=== PATIENT | female | born 1940 | race Two or more races ===

== ENCOUNTER 2021-03-12 08:00 | Outpatient (CLI) | payer OTHER | END 2021-03-12 08:30 | disposition home or self-care (01) | LOC: PPH VACUNA 08:00 | DX: Z23 Encounter for immunization (principal) ==

== ENCOUNTER → 2021-09-20 | Outpatient (CLI) | payer OTHER | END | disposition home or self-care (01) | LOC: PPH VACUNA 08:00 | PROVIDERS: ATTEND Emergency Medicine Pediatric Emergency Medicine | DX: Z23 Encounter for immunization (principal) ==

== ENCOUNTER 2023-02-22 10:34 | Emergency (ER) | payer OTHER ==
[~2023-02-22] VITALS: Ht 154.9 cm; Wt 61.2 kg
[2023-02-22] MEDS ORDERED: ATENOLOL25 MG PO (11:21)
[2023-02-22] MEDS ORDERED: LEVO-T50 MCG PO (11:22)
[2023-02-22] MEDS ORDERED: CRESTOR10 MG PO (11:22)
== END 2023-02-22 12:19 | disposition home or self-care (01) ==
LOC: ER 10:34
DX: S00.83XA Contusion of other part of head, initial encounter (principal); W18.39XA Other fall on same level, initial encounter; Y93.89 Activity, other specified; Y92.018 Other place in single-family (private) house as the place of occurrence of the external cause; Z91.041 Radiographic dye allergy status; Z88.2 Allergy status to sulfonamides

== ENCOUNTER 2023-07-17 10:21 | Outpatient (CLI) | payer OTHER ==
[~2023-07-17 10:21] MED LIST: ATENOLOL25 MG PO; CRESTOR10 MG PO; LEVO-T50 MCG PO
== END 2023-07-17 10:35 | disposition home or self-care (01) ==
LOC: MRI 10:21
PROVIDERS: ATTEND Psychiatry & Neurology Clinical Neurophysiology
DX: G45.9 Transient cerebral ischemic attack, unspecified (principal); Z88.1 Allergy status to other antibiotic agents; Z91.041 Radiographic dye allergy status
CPT/HCPCS: 70544